=== PATIENT | male | born 1980 | race Caucasian/White ===

== ENCOUNTER 2021-02-02 | Emergency (ER) | payer BC ==
[~2021-02-02] MED LIST: CIPRO500 MG PO; KEFLEX500 MG PO; LISINOPRIL10 MG PO
[2021-02-02 15:21] LABS: HEMOGLOBIN 16.6 g/dl (14.0-18.0); IMMATURE GRANULOCYTES 0.4 % (0.0-5.0); MEAN CELL VOLUME 84.5 fL CALC (80.0-100.0); MEAN CORPUSCULAR HGB 28.6 pG CALC (26.0-32.0); MEAN CORPUSCULAR HGB CONC 33.9 g/dL CAL (32.0-36.0); NEUT# 13.39 thou/uL (1.82-7.42); RED BLOOD COUNT 5.8 mill/uL (4.70-6.10)
[2021-02-02 15:40] LABS: ALBUMIN 4.5 g/dL (3.2-5.0); AMYLASE 51 u/l (30-110); ANION GAP 13 (6-22 (CALC)); BILIRUBIN, TOTAL 0.9 mg/dL (0.0-1.4); BUN 19 mg/dL (9-20); BUN/CREATININE RATIO 17 (12-20 (CALC)); CARBON DIOXIDE 27 mmol/l (22-30); CHLORIDE 103 mmol/l (95-108); CREATININE 1.1 mg/dL (0.7-1.3); GFR > 60 ML/MIN (>=60 (CALC)); GFR FOR AFR.AMER. > 60 ML/MIN (>=60 (CALC)); LIPASE 65 u/l (23-300); POTASSIUM 3.6 mmol/l (3.5-5.1); SGOT/AST 29 u/l (17-59); SODIUM 141 mmol/l (137-146); TOTAL PROTEIN 7.2 g/dL (6.3-8.2)
[2021-02-02 15:42] LABS: ALKALINE PHOSPHATASE 106 u/l (38-126)
[2021-02-02 17:05] LABS: URINE BILIRUBIN - DIPSTICK NEGATIVE (NEGATIVE); URINE BLOOD DIPSTICK LARGE (NEGATIVE); URINE COLOR YELLOW; URINE GLUCOSE - DIPSTICK NEGATIVE (NEGATIVE); URINE KETONE NEGATIVE (NEGATIVE); URINE LEUK ESTERASE NEGATIVE (NEGATIVE); URINE PH 6.5 (4.5-8.0); URINE PROTEIN - DIPSTICK NEGATIVE (NEG-TRACE); URINE UROBILINOGEN - DIPSTICK 0.2 E.U./dL (0.2)
[2021-02-02 17:08] LABS: URINE NITRITE - DIPSTICK NEGATIVE (Negative)
[2021-02-02] MEDS ORDERED: TAMSULOSIN0.4 MG PO (17:18)
[2021-02-02] MEDS ORDERED: ONDANSETRON4 MG PO (17:18)
[2021-02-02] MEDS ORDERED: LORTAB 1010 MG PO (17:18)
== END 2021-02-02 17:34 | disposition home or self-care (01) | DRG 694 ==
PROVIDERS: Emergency Medicine
DX: N20.0 Calculus of kidney (principal); L30.9 Dermatitis, unspecified; I10 Essential (primary) hypertension
CPT/HCPCS: Q9967